=== PATIENT | female | born 1950 | race Caucasian/White ===

== ENCOUNTER 2018-01-02 14:32 | Outpatient (CLI) | payer MEDICARE, BC ==
--- NOTE | 2018-01-02 15:18 | ULT ---
THYROID ULTRASOUND: HISTORY: Hypothyroidism. COMPARISON: None. TECHNIQUE: Sagittal and transverse imaging of the thyroid gland were performed. FINDINGS: The thyroid isthmus measures 0.2 cm. The left thyroid lobe measures 3.1 x 0.9 x 0.9 cm. The right thyroid lobe measures 2.7 x 1.0 x 1.0 c m. IMPRESSION: Unremarkable thyroid ultrasound. POS: [facility]
== END 2018-01-02 14:33 | disposition home or self-care (01) ==
LOC: SCSULT 14:32
DX: E03.9 Hypothyroidism, unspecified (principal)
CPT/HCPCS: 76536

== ENCOUNTER 2018-01-29 17:20 | Emergency (ER) | payer MEDICARE, BC ==
[~2018-01-29 17:20] MED LIST: Iopamidol 370 76% 100 ML VIAL ONE
[2018-01-29 17:41] LABS: Bilirubin Negative (Negative); Blood, Urine Trace (Negative); Clarity Slightly Cloudy (Clear); Glucose, Urine (Dipstick) Negative (Negative); Leukocyte Trace (Negative); Nitrite Negative (Negative); Protein, Urine (Dipstick) Negative (Neg-Trace); Specific Gravity, Urine 1.025 (1.005-1.030); Urobilinogen 0.2 mg/dL (0.2-1.0); pH, Urine 5.5 (5.0-9.0)
[2018-01-29 17:46] LABS: Bacteria/HPF Rare-Few HPF (None Seen)
[2018-01-29 18:05] LABS: Eosinophils 5 % (0-10); Hemoglobin 10.4 g/dL (12.0-16.0); Lymphocytes 35 % (21-51); MDiff Complete? YES; Mean Corpuscular HGB CONC 32.6 g/dL (32.0-36.0); Mean Corpuscular Volume 85.8 fL (78.0-98.0); Mean Platelet Volume 7.2 fL (7.4-10.4); Monocytes 10 % (0-10); Neutrophil 47 % (42-75); PLT Morphology Comment Appears Adequate; Platelet Count 175 thou/uL (130-400); RBC Distribution Width 11.6 % (11.5-14.5); Reactive Lymphocytes 1 % (0-10); Red Blood Cell (RBC) Count 3.71 mill/uL (4.20-5.40); White Blood Cell (WBC) Count 7.9 thou/uL (4.8-10.8)
[2018-01-29 18:11] LABS: ALT (SGPT) 9 U/L (8-55); AST (SGOT) 14 U/L (5-34); Albumin 3.9 g/dL (3.4-4.8); Alkaline Phosphatase 80 U/L (40-150); Anion Gap 15 mmol/L (10-20); BUN (Urea Nitrogen) 15 mg/dL (9.8-20.1); Bilirubin, Total 0.3 mg/dL (0.2-1.2); Calc. Creatinine Clearance 0 mL/min (70-130); Calcium 9.8 mg/dL (7.8-10.44); Carbon Dioxide 23 mmol/L (23-31); Chloride 106 mmol/L (98-107); Estimated GFR-MDRD 67; Globulin 3.2 g/dL (2.4-3.5); Glucose 87 mg/dL (80-115); Potassium 4.2 mmol/L (3.5-5.1); Protein, Total 7.1 g/dL (6.0-8.3); Sodium 140 mmol/L (136-145)
--- NOTE | 2018-01-29 21:43 | CT ---
CT ABDOMEN AND PELVIS WITH CONTRAST: 01/29/18 Multiple axial tomograms obtained through the abdomen and pelvis with IV enhancement. Oral contrast w as given. INDICATIONS: Abdominal pain. FINDINGS: The lung bases are clear. The liver, spleen, and pancreas appear unremarkable. Postoperative changes are seen in the stomach co nsistent with history of gastric sleeve procedure. Adrenal glands are normal. There is a complex heterogeneously enhancing mass involving the lower pole of the left kidney. This m ass measures 4.1 x 3.2 cm in the axial plane. Findings appear most consistent with renal cell carcino ma. No hydronephrosis. The urinary bladder is unremarkable. Small bowel loops appear normal. The appendix is normal. Colon unremarkable. There is diverticulosis in the sigmoid without evidence of diverticulitis. Images through pelvis show unremarkable uterus and adnexa. Aorta is normal caliber. No adenopathy george ntified. Osseous structures appear unremarkable. IMPRESSION: There is a heterogeneously enhancing mass involving the lower pole of the left kidney concerning for renal cell carcinoma. There is evidence of filling defect in the left renal vein which may represent areas of tumor thrombus. Urologic consultation is recommended. POS: [facility]
== END 2018-01-29 22:09 | disposition home or self-care (01) ==
LOC: SCSER 17:20
DX: N28.89 Other specified disorders of kidney and ureter (principal); E11.9 Type 2 diabetes mellitus without complications; E03.9 Hypothyroidism, unspecified; E78.5 Hyperlipidemia, unspecified; I10 Essential (primary) hypertension; Z79.899 Other long term (current) drug therapy; Z79.84 Long term (current) use of oral hypoglycemic drugs
CPT/HCPCS: 74177; 80053; 81003; 81015; 85025; 94760; 96360

== ENCOUNTER 2020-06-19 10:56 | Outpatient (CLI) | payer MEDICARE, BC ==
--- NOTE | 2020-06-19 12:03 | MMO ---
Bilateral MAMMO Bilat Screen [facility]. CLINICAL HISTORY: Patient is 69 years old and is seen for screening. The patient has no family history of breast cancer. The patient has no personal history of cancer. VIEWS: The views performed were: bilateral craniocaudal with tomosynthesis; bilateral mediolateral oblique with tomosynthesis; and right exaggerated craniocaudal. FILMS COMPARED: The present examination has been compared to prior imaging studies performed at [facility] on 10/25/2016, 10/27/2017 and 11/09/2018. This study has been interpreted with the assistance of computer-aided detection. MAMMOGRAM FINDINGS: There are scattered fibroglandular densities. There are no suspicious masses, suspicious calcifications, or new areas of architectural distortion. IMPRESSION: THERE IS NO MAMMOGRAPHIC EVIDENCE OF MALIGNANCY. A ROUTINE FOLLOW-UP MAMMOGRAM IN 1 YEAR IS RECOMMENDED. THE RESULTS OF THIS EXAM WERE SENT TO THE PATIENT. ACR BI-RADS Category 1 - Negative MAMMOGRAPHY NOTE: 1. A negative mammogram report should not delay a biopsy if a dominant of clinically suspicious mass is present. 2. Approximately 10% to 15% of breast cancers are not detected by mammography. 3. Adenosis and dense breasts may obscure an underlying neoplasm. Reported by: WILDA ANGULO MD Electonically Signed: [id number]
== END 2020-06-19 10:57 | disposition home or self-care (01) ==
LOC: BICMAMMO 10:56
PROVIDERS: ATTEND Obstetrics & Gynecology
DX: Z12.31 Encounter for screening mammogram for malignant neoplasm of breast (principal)
CPT/HCPCS: 77063; 77067

== ENCOUNTER 2022-03-28 09:55 | Outpatient (CLI) | payer MEDICARE, BC | END 2022-03-28 09:56 | disposition home or self-care (01) | LOC: BICMAMMO 09:55 | PROVIDERS: ATTEND Internal Medicine Endocrinology, Diabetes & Metabolism | DX: M81.0 Age-related osteoporosis without current pathological fracture (principal); M85.89 Other specified disorders of bone density and structure, multiple sites | CPT/HCPCS: 77080 ==

== ENCOUNTER 2024-05-03 08:49 | Outpatient (CLI) | payer MEDICARE, BC | END 2024-05-03 08:50 | disposition home or self-care (01) | LOC: BICMAMMO 08:49 | PROVIDERS: ATTEND Internal Medicine | DX: Z12.31 Encounter for screening mammogram for malignant neoplasm of breast (principal); Z80.3 Family history of malignant neoplasm of breast; Z85.528 Personal history of other malignant neoplasm of kidney | CPT/HCPCS: 77063; 77067 ==

== ENCOUNTER 2024-06-14 09:30 | Outpatient (CLI) | payer MEDICARE, BC | END 2024-06-14 09:31 | disposition home or self-care (01) | LOC: BICMAMMO 09:30 | PROVIDERS: ATTEND Internal Medicine Endocrinology, Diabetes & Metabolism | DX: M81.8 Other osteoporosis without current pathological fracture (principal); M85.88 Other specified disorders of bone density and structure, other site | CPT/HCPCS: 77080 ==